=== PATIENT | female | born 1995 | race Caucasian/White ===

== ENCOUNTER 2019-02-26 12:40 | Emergency (ER) | payer SELFPAY ==
[~2019-02-26] VITALS: Ht 157.5 cm; Wt 79.4 kg
[2019-02-26 12:59] VITALS: BP 136/72
[2019-02-26] MEDS ORDERED: DEXAMETHASONE 4 MG TABLET PO ONE (13:00)
[2019-02-26] MEDS ORDERED: AMOX1TAB61 PO (13:34)
--- NOTE | 2019-02-26 13:34 | PHYS DOC ---
Past History Past Medical History: No Pertinent History Past Surgical History: Cholecystectomy Alcohol Use: None Drug Use: None Adult General Chief Complaint Chief Complaint: SORE THROAT HPI HPI Patient is a 23 year old female who presents with sore throat. She started having a cough and nasal congestion a week ago. Her throat started hurting earlier in the week and has been getting increasingly worse. She reports a fever of 102 last night. She has had a runny nose and ear pain. She denies SOB, chest pain, abdominal pain, or nausea and vomiting. Denies . Review of Systems Review of Systems Constitutional: Reports fever and chills Eyes: Denies redness or eye pain HENT: Reports nasal congestion and sore throat Respiratory: Reports cough, denies shortness of breath Cardiovascular: Denies chest pain or palpitations GI: Denies abdominal pain, nausea, or vomiting : Denies dysuria or hematuria Musculoskeletal: Denies back pain or joint pain Integument: Denies rash or skin lesions Neurologic: Denies headache, focal weakness or sensory changes Complete systems were reviewed and found to be within normal limits, except as documented in this note. Current Medications Current Medications Current Medications Medications (Trade) Dose Ordered Sig/Alee Start Time Stop Time Status Last Admin Dose Admin Dexamethasone (Decadron) 10 mg 1X ONCE 02/26/19 13:00 02/26/19 13:24 DC 02/26/19 13:17 10 MG Allergies Allergies Allergies Coded Allergies Type Severity Reaction Last Updated Verified No Known Drug Allergies 02/26/19 No Physical Exam Physical Exam Constitutional: Well developed, well nourished, no acute distress, non-toxic appearance HENT: Normocephalic, atraumatic, oropharynx moist, throat erythematous without tonsillar exudates, tympanic membrane intact with cone of light present bilaterally Eyes: PERRL, EOMI, conjunctiva normal, no discharge Neck: Normal range of motion, no tenderness, supple Cardiovascular: Heart rate normal, regular rhythm Lungs & Thorax: Bilateral breath sounds clear to auscultation, no wheezing Abdomen: Soft, no tenderness Skin: Warm, dry, no erythema, no rash Extremities: No tenderness, ROM intact, no edema Neurologic: Alert and oriented X 3 no focal deficits noted Psychologic: Affect normal, judgement normal, mood normal Current Patient Data Vital Signs Vital Signs Date Time Temp Pulse Resp B/P (MAP) Pulse Ox O2 Delivery O2 Flow Rate FiO2 7/19/19 12:59 98.4 68 18 99 Room Air Lab Results Laboratory Tests Test 02/26/19 13:07 Group A Streptococcus Rapid Negative (NEGATIVE) EKG EKG [] Radiology/Procedures Radiology/Procedures [] Course & Med Decision Making Course & Med Decision Making Pertinent Lab studies reviewed. (See chart for details) Ms. Vang is a 23 year old female who presents with a sore throat. She has had nasal congestion and cough for a week. Yesterday she had a fever of 102 and a sore throat. On exam her throat is erythematous without tonsillar exudates. Rapid strep test is negative. She is most likely having a viral URI and is treated with dexamethasone that will be followed with 4 more days of prednisone. She is given a prescription for Augmentin to use if her symptoms worsen with watch and wait instructions. Patient stable for discharge with outpatient follow-up with PCP. Discussed findings and plan with patient, who acknowledges understanding and agreement. Dragon Disclaimer Dragon Disclaimer This electronic medical record was generated, in whole or in part, using a voice recognition dictation system. Departure Departure: Impression: Primary Impression: Pharyngitis Disposition: HOME, SELF-CARE Condition: STABLE Referrals: PCPMAURA (PCP) Patient Instructions: Viral and Bacterial Pharyngitis, [id number] Additional Instructions: Hold antibiotics for 48 hours. If symptoms worsen or for fever > 100.3 F after 48 hours then start antibiotics as prescribed. Scripts Prednisone (PREDNISONE) 20 Mg Tablet 2 TAB PO DAILY for Pharyngitis, #8 TAB Start this prescription tomorrow, 02/26/19 Prov: DESIRAE CORNELL DO 02/26/19 Amoxicillin/Potassium Clav (AUGMENTIN 875-125 TABLET) 1 Each Tablet 1 TAB PO BID for pharyngitis, #14 TAB Prov: DESIRAE CORNELL DO 02/26/19 Problem Qualifiers Primary Impression: Pharyngitis Pharyngitis/tonsillitis etiology: unspecified etiology Qualified Codes: J02.9 - Acute pharyngitis, unspecified DESIRAE CORNELL DO Feb 26, 2019 13:34
[2019-02-26] MEDS ORDERED: PRED20TA PO (13:42)
== END 2019-02-26 13:57 | disposition home or self-care (01) ==
LOC: ER 12:40
DX: J02.9 Acute pharyngitis, unspecified (principal)
CPT/HCPCS: 87070; 87880; 99284; J8540